=== PATIENT | male | born 1995 ===

== ENCOUNTER 2022-07-25 12:48 | Outpatient (CLI) | payer OTHER ==
--- NOTE | 2022-07-25 13:43 | SLEEP CARE CONSULTATION ---
Information from patient questionnaire entered by Niranjan Zavala. I have reviewed and concur with the information entered by Niranjan Zavala. This document represents the service I personally performed and the decisions made by me, Germaine Correa MD, [facility]. History of Present Illness Service Date and Time: 07/25/2022 1248 Reason for Visit: New patient Chief Complaint: reports: Other (SLEEP WALKING) Date of Onset: LASTED ABOUT 5MONTHS Usual bedtime: 11PM Time it takes to fall asleep: 30MIN Snores at night: Yes Observed to quit breathing while asleep: No Sleeps alone due to snoring: No Number of times waking at night: 2 Reasons for waking at night: reports: Other (BABY) Toss, Turn, or Twitch while sleeping: Yes Recalls having dreams: No Usually gets out of bed at: 8AM Feels refreshed in the morning: No Morning headache: No Sleepy or fatigued during the day: Yes Ever fallen asleep while driving: No Takes day naps: No Dreams during day naps: No Prior sleep studies: No Additional HPI information: I had the pleasure of seeing Mr. Arango today regarding the possibility of him having a sleep disorder. As you know, he is a 26-year-old gentleman who complains of sleep walking. He said it started in September of last year and lasted until December. It started right after the of his daughter. At the peak, he was sleep walking once every week. He admitted to being sleep deprived around the time. He did not have any dreams associated with the walking which usually occurred in the first half of the night. No injury from the movement. He was not taking any medication. Presently, he still has to work nightclub manager occasionally. He did not sleep walk when he was a child or teenager. No family history of sleep walking. The patient tells me that he normally goes to bed around 11 pm, and it takes him approximately 30 minutes to fall asleep. He has not been told that he snores loudly or irregularly at night. He has never been observed to stop breathing in his sleep. His sleeps in the same bed. He can recall waking up on average 2 times during the night. Most of the time he wakes up because of his daughter. There is a lot of tossing and turning in his sleep. Generally, there is no recollection of dreams. In the morning he usually gets up out of the bed around 8 a.m. not feeling refreshed nor rested. He usually does not have a morning headache. During the day he does not feel sleepy and fatigued. His score on [employer] Sleepiness Scale is 6 out of 24. He never has fallen asleep while driving nor has had any accident due to sleepiness. He usually does not take naps during the day. Upon falling asleep during the day he denies having vivid dreams. He has had sleep paralysis. He reports having impaired concentration during the day. He denies having restless leg. - Parasomnia Symptoms Ever been unable to move upon waking from sleep: Yes Walks in sleep: Yes Talks in sleep: Yes Ever acted out dreams in sleep: No Ever felt weak in the knees when startled or emotional: No Bothered by creepy, crawly, restless sensations in legs: No Problems with memory or concentration: Yes Subjective Initial [employer] Sleepiness Scale score: 6 (07/25/22) Social History The patient's occupation is a [employer]. Patient is and lives in . Have you smoked in the past 12 months: No Alcohol use: Yes Alcohol amount and frequency: 1BEER 1/2 MONTH Caffeine use: Yes Caffeine amount and frequency: COFFEE OR RED BULL 3-4 X WEEK Family History Family history of sleep disordered breathing: Yes Family Hx Sleep Apnea: Mother: Snoring, Father: Snoring, Grandparent: Snoring Allergies and Home Medications Known drug allergies: No Drug allergies reviewed: Yes Home medication list reviewed: Yes (fexofenadine) Review of Systems Cardiovascular: denies: high blood pressure, palpitations, chest pain, irregular heart rate or pulse, leg or foot swelling, have to sleep sitting up, other Respiratory: denies: shortness of breath, wheeze, sputum production, chronic cough, other Gastrointestinal: denies: heartburn, difficulty swallowing, nausea, vomitting, diarrhea, abdominal pain, other Urinary: denies: incontinence, frequency, urgency, impotence, other Neurological: denies: headaches, seizure, head trauma, disorientation, speech dysfunction, gait or balance problems, fainting or unconsciousness, other Psychiatric: denies: Attention Deficit Hyperactivity, anxiety, depression, mood disorder, claustrophobia, other Ear/Nose/Throat: reports: nose bleeds, injury to nose, tonsillectomy, wisdom teeth removed Endocrine: denies: thyroid disease, history of goiter, sluggishness, too hot or cold, excessive thirst, increased appetite, increased urination, unexplained weakness, other Musculoskeletal: reports: joint pain, neck pain, back pain Immunologic: denies: sneezing, rash, itching, allergies to food or environment, other Physical Exam Vital signs obtained and entered by: NIRANJAN Belcher MA Blood Pressure: 122/72 (LEFT ARM) Cuff size: regular Heart Rate: 68 O2 Saturation: 99 Height: 6 ft Weight: 159 lb 6.4 oz Body Mass Index: 21.6 BMI Classification: Normal Neck circumference: 14.25 Mood/affect: Normal HEENT: No craniofacial malformation Nostrils: patent to airflow Turbinates: normal Septum: midline Mouth and throat: normal Soft palate: normal Hard palate: normal Uvula: normal Uvula visualization: 100% Mallampati Class I Tongue: normal in size Tonsils: absent bilaterally Chin and jaw: normal size and position Neck: normal w/o lymphadenopathy or thyromegaly Heart: regular rate and rhythm Lungs: clear bilaterally Abdomen: soft, non-tender Extremities: no edema or clubbing Neurologic: intact, no focal deficits Impression and Plan IMPRESSION: 1. Somnambulism, a non-REM parasomnia, most likely due to sleep deprivation around of time of his daughters . Stress and sleep schedule disruptions may also play a role. The patient is now getting adequate sleep regularly and has not had an incident the past 7 months. A sleep study will be performed to document the parasomnia and other sleep disrupting conditions that may be contributing factors. I informed the patient of what the sleep studies involve and after some discussion, he agreed to proceed. Plan: 1. Schedule polysomnography with parasomnia montage. 2. Allow adequate time for sleeping. 3. Avoid alcohol and sedatives near bedtime. 4. Avoid change in sleep-wake schedule, e.g. shift work. 5. Return for follow up after the sleep study. Follow up with Sleep Care in: 1-2 months Plan: in-lab PSG with parasomnia montage Visit Type: In Office Time Spent with Patient (minutes): 15 Provider Statement: I spent 100% of the Face to Face Visit with the patient with greater than 50% spent counseling the patient and coordination of care.
[2022-07-25 13:44] VITALS: BP 122/72
== END 2022-07-25 12:49 | disposition home or self-care (01) ==
LOC: SC 12:48
PROVIDERS: ATTEND Internal Medicine Pulmonary Disease
DX: R06.83 Snoring (principal); F51.3 Sleepwalking [somnambulism]
CPT/HCPCS: 99202; 99212

== ENCOUNTER 2022-08-15 19:23 | Outpatient (CLI) | payer OTHER | END 2022-08-15 19:24 | disposition home or self-care (01) | LOC: SC 19:23 | PROVIDERS: ATTEND Internal Medicine Pulmonary Disease | DX: R06.83 Snoring (principal); F51.3 Sleepwalking [somnambulism] | CPT/HCPCS: 95810 ==

== ENCOUNTER 2022-08-29 13:07 | Outpatient (CLI) | payer OTHER ==
--- NOTE | 2022-08-29 15:56 | SLEEP CARE CONSULTATION ---
Information from patient questionnaire entered by Niranjan Zavala. I have reviewed and concur with the information entered by Niranjan Zavala. This document represents the service I personally performed and the decisions made by me, Germaine Correa MD, [facility]. History of Present Illness Service Date and Time: 08/29/2022 1307 Initial [place] Sleepiness Scale score: 6 (07/25/22) Current [place] Sleepiness Scale score: 1 (08/29/22) Additional HPI information: Mr. Daniel returned for follow up of the sleep study he had on 08/15/22. The polysomnography showed that the patient had normal sleep efficiency. The sleep architecture was relatively normal as well considering the first night effect. Respiratory monitoring showed no significant sleep disordered breathing (AHI = 0.5) or hypoxia (alonso oxygen saturation of 93%). The rare respiratory events occurred independently of sleep stage and body position (supine AHI = 0.8; non- supine = 0.37). Snore was infrequent and light in intensity. There was no significant periodic leg movement of sleep. Cardiac rhythm was normal sinus rhythm without significant arrhythmia. No abnormal behavior (parasomnia) observed during the night. The patient was informed of these findings. I explained to him that the sleep study was normal. Sleep Study - Results Type of Sleep Study: Polysomnography (COMPLETED 08/15/22) Prior sleep studies: No Allergies and Home Medications Drug allergies reviewed: Yes Home medication list reviewed: Yes Allergy and home medication list: Allergies No Known Drug Allergies Allergy (Verified 08/29/22 08:54) Review of Systems Review of systems same as previous: Yes Physical Exam Vital signs obtained and entered by: NIRANJAN Belcher MA Blood Pressure: 122/70 (LEFT ARM) Cuff size: regular Heart Rate: 74 O2 Saturation: 99 Height: 6 ft Weight: 138 lb 9.6 oz Body Mass Index: 18.8 BMI Classification: Normal Impression and Plan IMPRESSION: 1. Somnambulism (sleep walking), a non-REM parasomnia, most likely due to sleep deprivation around of time of his daughters . Stress and sleep schedule disruptions may also play a role. The patient is now getting adequate sleep regularly and has not had an incident the past 9 months. There were no sleep disrupting conditions found during the sleep study. Somnambulism may recur if he is again suffers sleep deprivation. Melatonin 5 9 mg may be used for treatment. If not effective and the patient is in a an environment where sleep walking would be dangerous, clonazepam may be used. PLAN: 1. Avoid sleep deprivation. 2. Maintain safe sleeping environment. 3. Consider putting an alarm on the bedroom door so that he would wake up if trying to get out in his sleep. 4. Return for a follow up on as needed basis. Follow up with Sleep Care in: as needed Visit Type: In Office Time Spent with Patient (minutes): 15 Provider Statement: I spent 100% of the Face to Face Visit with the patient with greater than 50% spent counseling the patient and coordination of care.
[2022-08-29 15:58] VITALS: BP 122/70
== END 2022-08-29 13:08 | disposition home or self-care (01) ==
LOC: SC 13:07
PROVIDERS: ATTEND Internal Medicine Pulmonary Disease
DX: F51.3 Sleepwalking [somnambulism] (principal)
CPT/HCPCS: 99212